=== PATIENT | male | born 1955 | race Asian ===

== ENCOUNTER 2017-11-07 08:48 | Emergency (ER) | payer OTHER ==
[2017-11-07 08:53] VITALS: BP 127/70; PULSE 98; TEMP 98.1; BMI 29.2
--- NOTE | 2017-11-07 09:28 | PDOC ---
History of Present Illness - General Chief Complaint: Injury Stated Complaint: FALL,RT LEG INJURY Time Seen by Provider: 11/07/17 08:58 History Source: Patient Exam Limitations: No Limitations - History of Present Illness Initial Comments: 11/07/17 09:26 62 yr male with pain to the right ankle after twisting it this AM on slippery surface. Pt states he injured same ankle many years ago had fracture. Pt is ambulatory . Past History - Past Medical History Allergies/Adverse Reactions: Allergies Allergy/AdvReac Type Severity Reaction Status Date / Time No Known Allergies Allergy Verified 11/07/17 08:53 Home Medications: Ambulatory Orders Aspirin [ASA -] 81 mg PO DAILY 10/18/13 Atorvastatin Ca [Lipitor -] 20 mg PO HS 10/18/13 Telmisartan [Micardis] 80 mg PO DAILY 10/18/13 COPD: No HTN: Yes - Surgical History Cholecystectomy: Yes - Suicide/Smoking/Psychosocial Hx Smoking History: Never smoked Information on smoking cessation initiated: No Hx Alcohol Use: No Drug/Substance Use Hx: No Substance Use Type: None *Physical Exam - Vital Signs Last Vital Signs Temp Pulse Resp BP Pulse Ox 98.1 F 98 H 19 127/70 100 11/07/17 08:51 11/07/17 08:51 11/07/17 08:51 11/07/17 08:51 11/07/17 08:51 - Physical Exam General Appearance: Yes: Nourished, Appropriately Dressed HEENT: positive: EOMI, ZA Extremity: positive: Normal Capillary Refill, Normal Inspection, Normal Range of Motion, Tender (calcaneus TTP, medially to the ankle , no swelling or deformtiy, nv intact, FROM of the joint ) Integumentary: positive: Normal Color, Dry, Warm Neurologic: positive: Fully Oriented, Alert, Normal Mood/Affect, Normal Response , Motor Strength 5/5 Procedures - Splinting Pre-Made Type: jennie wrap placed right ankle and heel ED Treatment Course - RADIOLOGY Radiology Studies Ordered: Category Date Time Status ANKLE & FOOT-RIGHT* [RAD] Stat Radiology 11/07/17 09:01 Taken Medical Decision Making - Medical Decision Making 11/07/17 11:13 cc: right ankle injury this am slipped and twisted the ankle, did not fall pt has old injury to the heel pt is ambulating without difficulty pt has point tenderness to the heel and the medial maleolus xray is done and is negative results have been given to the pt jennie wrap placed *DC/Admit/Observation/Transfer Diagnosis at time of Disposition: Ankle sprain Qualifiers: Encounter type: initial encounter Involved ligament of ankle: calcaneofibular ligament Laterality: right Qualified Code(s): S93.411A - Sprain of calcaneofibular ligament of right ankle, initial encounter - Discharge Dispostion Disposition: HOME Condition at time of disposition: Good - Referrals Referrals: Aydin Rodriguez [Primary Care Provider] - Federico Bryant MD [Staff Physician] - - Patient Instructions Additional Instructions: follow with the orthopedist for follow up next week use the jennie wrap while awake remove to sleep and bathe, avoid strenuous activity take motrin as needed for any pain - Post Discharge Activity Forms/Work/School Notes: Back to Work
== END 2017-11-07 09:39 | disposition home or self-care (01) ==
LOC: JERFT 08:48
DX: S93.411A Sprain of calcaneofibular ligament of right ankle, initial encounter (principal); W18.40XA Slipping, tripping and stumbling without falling, unspecified, initial encounter; Y93.89 Activity, other specified; Y92.9 Unspecified place or not applicable; I10 Essential (primary) hypertension
CPT/HCPCS: 73610-TC-RT-FY; 73630-TC-RT-FY; 99281-25

== ENCOUNTER 2020-04-26 14:44 | Emergency (ER) | payer OTHER ==
[2020-04-26] MEDS ORDERED: diphenhydrAMINE HCL 25 MG CAPSULE (FP) PO ONE ×2 (15:09→15:28)
--- NOTE | 2020-04-26 15:10 | PDOC ---
Rapid Medical Evaluation Time Seen by Provider: 04/26/20 15:07 Medical Evaluation: Allergies Allergy/AdvReac Type Severity Reaction Status Date / Time No Known Allergies Allergy Verified 04/26/20 15:06 04/26/20 15:07 Pt presents for evaluation of a rash for 5 days after working in his garden. Exam: erythematous linear rash to legs and L arm Orders: benadryl Pt to proceed to the ER for further evaluation Discharge Disposition - Diagnosis Rash - Referrals - Patient Instructions - Post Discharge Activity
[2020-04-26 15:16] VITALS: BP 176/80; PULSE 105; TEMP 98.2; BMI 28.0
--- NOTE | 2020-04-26 15:26 | PDOC ---
History of Present Illness - General Chief Complaint: Rash Stated Complaint: SKIN RASH Time Seen by Provider: 04/26/20 15:07 - History of Present Illness Initial Comments: 04/26/20 15:23 65-year-old male with a past medical history of hypertension presents for evaluation of rash x6 days. Patient states he was doing gardening work when the rash developed no systemic symptoms or shortness of breath Past History - Medical History Allergies/Adverse Reactions: Allergies Allergy/AdvReac Type Severity Reaction Status Date / Time No Known Allergies Allergy Verified 04/26/20 15:06 Home Medications: Ambulatory Orders Aspirin [ASA -] 81 mg PO DAILY 10/18/13 Atorvastatin Ca [Lipitor -] 20 mg PO HS 10/18/13 Telmisartan [Micardis] 80 mg PO DAILY 10/18/13 Clobetasol Propionate [Temovate] 30 gm TP BID #1 oint...g. 04/26/20 Methylprednisolone [Medrol Dose Juan] 4 mg PO ASDIR #21 tablet 04/26/20 COPD: No HTN: Yes Hypercholesterolemia: Yes - Surgical History Cholecystectomy: Yes - Psycho-Social/Smoking History Smoking History: Never smoked - Substance Abuse Hx (Audit-C & DAST Scrn) How often the patient has a drink containing alcohol: Never Score: In Men: 4 or > Positive; In Women: 3 or > Positive: 0 Screen Result (Pos requires Nsg. Audit-10AR): Negative In the last yr the pt used illegal drug/Rx for NonMed reason: No Score: Yes response is considered Positive: 0 Screen Result (Positive result requires Nsg. DAST-10): Negative Review of Systems - Review of Systems Respiratory: No: Cough, Shortness of Breath, Wheezing Integumentary: Yes: Pruritus, Rash *Physical Exam - Vital Signs Last Vital Signs Temp Pulse Resp BP Pulse Ox 98.2 F 105 H 20 176/80 H 100 04/26/20 15:07 04/26/20 15:07 04/26/20 15:07 04/26/20 15:07 04/26/20 15:07 - Physical Exam General Appearance: Yes: Nourished, Appropriately Dressed. No: Apparent Distress HEENT: positive: Symmetrical Neck: positive: Supple Respiratory/Chest: positive: Normal Breath Sounds. negative: Respiratory Distress, Wheezing Musculoskeletal: positive: Normal Inspection Integumentary: positive: Other (There are raised wheals about the anterior aspect of the left forearm and left claudio no indication of secondary infection) Neurologic: positive: manager disaster recovery II-XII NML intact, Fully Oriented Medical Decision Making - Medical Decision Making 04/26/20 15:24 Medrol Dosepak and topical steroid cream for contact dermatitis follow-up with dermatology I have reviewed the pathophysiology with the patient. They are in agreement with the treatment plan all questions were answered to their satisfaction. Understanding for follow-up without fail was also conveyed to the patient. Again they are in agreement. Discharge - Discharge Information Problems reviewed: Yes Clinical Impression/Diagnosis: Rash, Contact dermatitis Condition: Stable Disposition: HOME - Admission No - Additional Discharge Information Prescriptions: Methylprednisolone [Medrol Dose Juan] 4 mg PO ASDIR #21 tablet Clobetasol Propionate [Temovate] 30 gm TP BID #1 oint...g. - Follow up/Referral Referrals: Aydin Rodriguez [Primary Care Provider] - Estephanie Hughes MD [Staff Physician] - - Patient Discharge Instructions Additional Instructions: Please use a the steroid pack and topical steroid cream as directed continue with Benadryl as directed. Return to the emergency room for worsening symptoms and without fail follow-up with dermatology in 1 to 2 days for further evaluation and treatment options. Continue your blood pressure medication as directed take your next dose when you get home as directed. - Post Discharge Activity
== END 2020-04-26 15:33 | disposition home or self-care (01) ==
LOC: JERFT 14:44 → JER 14:44 → JERFT 15:33
DX: R21 Rash and other nonspecific skin eruption (principal)
CPT/HCPCS: 99283-25